=== PATIENT | female | born 2000 | race Two or more races ===

== ENCOUNTER 2019-03-05 14:05 | Outpatient (CLI) | payer OTHER | END 2019-03-05 14:16 | disposition home or self-care (01) | LOC: SONOGRAMA 14:05 | DX: N60.11 Diffuse cystic mastopathy of right breast (principal) ==

== ENCOUNTER 2019-12-27 13:56 | Outpatient (CLI) | payer OTHER | END 2019-12-27 14:07 | disposition home or self-care (01) | LOC: SONOGRAMA 13:56 → MAMO-SONO 14:00 → SONOGRAMA 14:07 | PROVIDERS: ATTEND Pediatrics | DX: E04.1 Nontoxic single thyroid nodule (principal) ==

== ENCOUNTER 2020-05-11 13:51 | Outpatient (CLI) | payer OTHER | END 2020-05-11 14:22 | disposition home or self-care (01) | LOC: SONOGRAMA 13:51 → MAMO-SONO 15:15 | PROVIDERS: ATTEND Surgery | DX: N60.11 Diffuse cystic mastopathy of right breast (principal); N60.12 Diffuse cystic mastopathy of left breast ==

== ENCOUNTER 2021-09-25 11:43 | Outpatient (CLI) | payer OTHER | END 2021-09-25 11:55 | disposition home or self-care (01) | LOC: SONOGRAMA 11:43 | PROVIDERS: ATTEND Surgery | DX: E03.9 Hypothyroidism, unspecified (principal); N60.11 Diffuse cystic mastopathy of right breast; N60.12 Diffuse cystic mastopathy of left breast ==